=== PATIENT | female | born 1990 | race Caucasian/White ===

== ENCOUNTER 2019-05-08 09:07 | Outpatient (CLI) | payer OTHER, SELFPAY ==
[2019-05-08 09:38] VITALS: BP 127/105; PULSE 72
[2019-05-08 09:44] LABS: Basophils Absolute Auto 0.1 K/mm3 (0.0-0.1); Basophils Percent Auto 0.4 % (0.2-1.2); Eosinophils Absolute Auto 0.2 K/mm3 (0-0.3); Eosinophils Percent Auto 1.8 % (0-4.4); Hematocrit 36.2 % (37.0-47.0); Immature Granulocyte Absolute 0.08 K/mm3 (0.00-0.031); Immature Granulocyte Percent A 0.6 % (0-0.5); Lymphocytes Absolute Auto 2.34 K/mm3 (0.9-3.2); Lymphocytes Percent Auto 17.6 % (18.3-44.2); Mean Corpuscular HGB Conc 33.1 g/dl (32-36); Mean Corpuscular Hemoglobin 29.9 pg (26-34); Mean Platelet Volume 10.3 fl (7.4-10.4); Monocytes Percent Auto 7.7 % (2.6-8.5); Neutrophils Absolute Auto 9.6 K/mm3 (1.3-6.7); Neutrophils Percent Auto 71.9 % (45.5-73.1); Platelet Count Result 188 k/mm3 (150-375); Red Blood Count 4.02 M/mm3 (4.2-5.4); Red Cell Distribution Width 15.1 % (11.5-14.5); White Blood Count 13.3 K/mm3 (4.5-10.0)
[2019-05-08 09:45] VITALS: BP 129/88; PULSE 72
[2019-05-08 09:51] LABS: Creatinine Urine 18.2 mg/dL; Total Protein Urine Random 13 mg/dL
[2019-05-08 09:54] LABS: Add Urine Microscopic? YES; Appearance Urine Clear (Clear); Bilirubin Urine Negative (Negative); Blood Urine Negative (Negative); Color Urine Colorless (Yellow); Glucose Urine UA Negative (Negative); Ketones Urine Negative (Negative); Leukocyte Esterase Ur Trace LEU/UL (NEGATIVE); Nitrate Urine Negative (Negative); Protein Urine Negative (Negative); RBC Urine 0-2 /hpf (0-2); Specific Grav Ur 1.005 (1.001-1.035); Squamous Epithelial Cell Urine Rare /hpf (Few); Urobilinogen Urine Negative mg/dL (<2.0); WBC Urine 0-3 /hpf (0-3)
[2019-05-08 09:57] LABS: Alanine Aminotransferase 16 U/L (4-35); Albumin Level 3.6 g/dL (3.5-5.1); Alkaline Phosphatase 82 U/L (38-126); Aspartate Amino Transferase 19 U/L (14-36); Bilirubin,Total 0.3 mg/dL (0.2-1.3); Blood Urea Nitrogen 8 mg/dL (7-17); Calcium 9.5 mg/dL (8.4-10.2); Carbon Dioxide 22 mmol/L (22-30); Chloride 104 mmol/L (98-107); Estimated Glomerular Filt Rate > 60; Glucose 82 mg/dL (65-105); Potassium 3.8 mmol/L (3.4-5.0); Sodium 134 mmol/L (137-145); Uric Acid 5.2 mg/dL (2.5-7.5)
[2019-05-08 10:00] VITALS: BP 130/83; PULSE 70
[2019-05-08 10:15] VITALS: BP 127/81; PULSE 72
[2019-05-08 10:20] VITALS: BP 127/81; BP 129/88; PULSE 72; PULSE 75
== END 2019-05-08 10:25 | disposition home or self-care (01) ==
LOC: ANHOBOP 09:13 → ANHOBPP 09:16
PROVIDERS: Visit Provider Obstetrics & Gynecology
DX: O13.9 Gestational [pregnancy-induced] hypertension without significant proteinuria, unspecified trimester (principal)
CPT/HCPCS: 36415; 59025; 80053; 81001; 82570; 84156; 84550; 85025; 87086; 99199

== ENCOUNTER 2019-05-15 22:48 | Inpatient (IN) | payer OTHER, SELFPAY ==
[2019-05-15 23:15] VITALS: TEMP 37.1
[2019-05-15 23:16] VITALS: BP 130/100; PULSE 88
[2019-05-15 23:22] VITALS: BMI 38.2
--- NOTE | 2019-05-15 23:24 | LDADM ---
This patient, Urszula Leal, was admitted to Labor/Delivery/Recovery 104 on 05/15/19 at 22:48. Plans for labor, pain management and were discussed with patient. Patient/family oriented to hospital policies and general routines including ID bracelet, bed and alarms, visiting hours, pain management, procedures, bathroom and other care routines, personal items, smoking policy, room service/diet and guest tray routines, infant security routines, and visiting hours. Patient/Family are encouraged to report perceived risks to care and to ask questions if they do not understand what they are told or what they should do. See OBIX for further documentation.
[2019-05-15 23:31] VITALS: BP 162/99; PULSE 80
[2019-05-15 23:37] LABS: Basophils Absolute Auto 0.1 K/mm3 (0.0-0.1); Basophils Percent Auto 0.4 % (0.2-1.2); Eosinophils Absolute Auto 0.1 K/mm3 (0-0.3); Eosinophils Percent Auto 0.8 % (0-4.4); Hematocrit 35.1 % (37.0-47.0); Immature Granulocyte Percent A 1.7 % (0-0.5); Lymphocytes Absolute Auto 3.46 K/mm3 (0.9-3.2); Lymphocytes Percent Auto 29.1 % (18.3-44.2); Mean Corpuscular HGB Conc 34.2 g/dl (32-36); Mean Corpuscular Hemoglobin 30.6 pg (26-34); Mean Corpuscular Volume 89.5 fl (80-100); Mean Platelet Volume 10.2 fl (7.4-10.4); Monocytes Absolute Auto 0.8 K/mm3 (0.1-0.6); Monocytes Percent Auto 6.7 % (2.6-8.5); Neutrophils Absolute Auto 7.3 K/mm3 (1.3-6.7); Neutrophils Percent Auto 61.3 % (45.5-73.1); Platelet Count Result 255 k/mm3 (150-375); Red Blood Count 3.92 M/mm3 (4.2-5.4); Red Cell Distribution Width 14.9 % (11.5-14.5); White Blood Count 11.9 K/mm3 (4.5-10.0)
[2019-05-15 23:40] VITALS: BP 157/107; PULSE 91
[2019-05-15 23:42] VITALS: BP 156/101; PULSE 88
[2019-05-15 23:46] VITALS: BP 124/75; PULSE 104
--- NOTE | 2019-05-15 23:52 | PC.NURSE ---
Mild left side facial drooping noted. Pt has equal strength on both sides. Denies headache. States she just noticed the change this evening.
[2019-05-16] VITALS (70 sets, daily range): BP systolic 117–163; BP diastolic 69–114; PULSE 58–104; RESP 17–18; TEMP 36.6–37.1; O2SAT 98–100
[2019-05-16] MEDS: LACTATED RINGERS 1,000 ML 125 ML IV CONT ×2 (00:15→00:59)
--- NOTE | 2019-05-16 00:47 | WPDANESEPP ---
Anes - Eval Pre Procedure Procedure: Labor epidural Date/Time: 05/16/19 00:47 Surgeon: Joselito Preop Diagnosis: Labor pain Pre Op Diagnosis: contractions and leaking Patient Data Age: 28 Gender: F Height: 1.6 m Weight: 98 kg Last Vital Signs Temp 37.1 C 05/15/19 23:15 Pulse 81 05/16/19 00:46 BP 148/103 H 05/16/19 00:46 Pulse Ox 99 05/16/19 00:44 Allergies Allergy/AdvReac Type Severity Reaction Status Date / Time Penicillins Allergy Unknown Skin Verified 03/04/17 21:20 Reaction Home Medications Medication Instructions Recorded Confirmed Type PNV cmb#95-ferrous fumarate-FA 1 tablet PO DAILY 05/04/19 05/15/19 History [] Laboratory Tests 05/15/19 05/15/19 23:26 23:26 WBC 11.9 K/mm3 H K/mm3 (4.5-10.0) RBC 3.92 M/mm3 L M/mm3 (4.2-5.4) Hgb 12.0 g/dL g/dL (12.0-15.0) Hct 35.1 % L % (37.0-47.0) MCV 89.5 fl fl (80-100) MCH 30.6 pg pg (26-34) MCHC 34.2 g/dl g/dl (32-36) RDW 14.9 % H % (11.5-14.5) Plt Count 255 k/mm3 k/mm3 (150-375) MPV 10.2 fl fl (7.4-10.4) Immature Gran % (Auto) 1.7 % H % (0-0.5) Neut % (Auto) 61.3 % % (45.5-73.1) Lymph % (Auto) 29.1 % % (18.3-44.2) [place] % (Auto) 6.7 % % (2.6-8.5) Eos % (Auto) 0.8 % % (0-4.4) Baso % (Auto) 0.4 % % (0.2-1.2) Lymph # (Auto) 3.46 K/mm3 H K/mm3 (0.9-3.2) [place] # (Auto) 0.8 K/mm3 H K/mm3 (0.1-0.6) Eos # (Auto) 0.1 K/mm3 K/mm3 (0-0.3) Baso # (Auto) 0.1 K/mm3 K/mm3 (0.0-0.1) Abs Immat Gran (auto) 0.20 K/mm3 H K/mm3 (0.00-0.031) Absolute Neuts (auto) 7.3 K/mm3 H K/mm3 (1.3-6.7) Absolute Nucleated RBC 0.0 K/mm3 K/mm3 (0.0-0.012) Nucleated RBC % 0.0 % % (0.0-0.2) RPR Pending Patient hx anesthesia problems: none Family hx anesthesia problems: none [facility] Past Medical History Medical History (Updated 05/16/19 @ 00:48 by Montrell Barnett DO) PIH ( induced hypertension) Family History Family History (Updated 01/24/18 @ 10:21 by DOCTOR UNKNOWN) Grandparent Diabetes mellitus Family history of hypercholesterolemia Family history of glaucoma Hypertension Family history of cardiovascular disease Family history of malignant neoplasm of breast Family history of coronary artery disease Father Family history of hypercholesterolemia Hypertension Mother Family history of hypercholesterolemia Hypertension Social History Social History Smoking status: Never smoker Alcohol intake: never Substance use: never Gender identity (if verbalized by the patient): Female Spiritual care concerns: No Exam Day of Procedure 05/16/19 00:47
[2019-05-16] MEDS: OXYTOCIN 30 UNITS/NS 500 ML 30 UNITS/500 ML BAG IV CONT (03:55)
--- NOTE | 2019-05-16 04:09 | WPDHPUPDATE1 ---
History and Physical Update Update Date/Time: 05/16/19 04:09 28 yo at 37w who presents after SROM last night. She denies any vaginal bleeding. She reports some ctx. She endorses good FM. History and Physical has been reviewed, including an updated exam of the patient. There are NO changes in the patient's condition. Risks, benefits, and alternatives have been discussed and questions answered. Patient agrees to proceed with procedure. A/P: admit to L&D routine admission orders Rh + GBS neg FHT category 1 expectant management
--- NOTE | 2019-05-16 06:32 | PM.OBPRVD ---
OB - Delivery Note Procedure Procedure: Patient pushed for a spontaneous vaginal delivery. The fetus was delivered atraumatically and placed on the maternal abdomen. The cord was clamped and cut after 1 minute of life. The cord was double clamped and cut and a segment of cord was collected for cord gases. Cord blood was collected for blood type and Coomb's testing. The placenta delivered spontaneously and was noted to be intact. The perineum was inspected and there was a 2nd degree perineal laceration. The laceration was repaired with 3-0 vicryl in the usual fashion. The uterus was firm and good hemostasis was noted. The patient and fetus were stable in the delivery room. Intrapartal events: None Induction method: none Delivery augmentation: pitocin Delivery monitor: external FHT Route of delivery: Episiotomy description: None Laceration description: Perineal - 2nd Degree Delivery repair: vicryl Specimen: No Estimated blood loss (mL): 250 Anesthesia type: Epidural Disposition: floor () Complications: No immediate complications Baby Date of : 05/16/19 Time of : 06:19 Weeks of gestation at delivery: 37 Infant gender: Male presentation: vertex position: Right Occiput Anterior Placenta delivery description: Spontaneous score one minute: 9 score five minutes: 9
[2019-05-16] MEDS: OXYTOCIN 30 UNITS/NS 500 ML 30 UNITS/500 ML BAG 125 UNITS IV CONT (07:01)
[2019-05-16 07:23] LABS: Rapid Plasma Reagin Non-Reactive (NonReactive)
[2019-05-16] MEDS: BENZOCAINE 20% AER SPR (*SP) 56 GM CAN 1 SPRAY TOPICAL (08:45)
[2019-05-16] MEDS: WITCH HAZEL 40 PADS 1 PAD TOPICAL (08:45)
--- NOTE | 2019-05-16 09:49 | OBPPTRN ---
Patient transferred to post room #285 via W/C. Support person present. Oriented to unit, room, information board, rooming in, admission packet and security measures. Patient verbalizes understanding.
--- NOTE | 2019-05-16 10:15 | PC.NURSE ---
Consulted with patient, mother reports this is 2nd child to . eagerly latched for first feeding. Infant is sleepy mother is attempting to wake to feed. Demonstrated stimulation techniques to wake for feeding. Assisted with infant to breast. Reviewed positioning/alignment in cross cradle, holding breast in U hold and guided asymmetrical latch on. Discussed rational for each. was able to latch correctly, within a few attempts. nursed eagerly, with steady draws and frequent swallowing noted. Reviewed signs of a correct latch, effective nursing and suck swallow ratio. Infant was able to maintain latch without discomfort to mother. Suggested mother stimulate to keep infant awake and nursing effectively. . Reviewed feeding cues, frequencies, duration of feedings, feeding elimination flow sheet, signs of adequate intake and nipple care. Instructed mother to call out for RN assistance if she is unable to latch infant for feeding or she has discomfort with nursing. Instructed feeding should be initiated three hours from start of last feeding or if feeding cues are noted before. Mother voiced understanding of information shared.
--- NOTE | 2019-05-16 12:43 | PC.NURSE ---
Everything charted for 0805 should be charted for 0905
[2019-05-16] MEDS: IBUPROFEN 600 MG TABLET PO (16:49)
[2019-05-16] MEDS: POLYSACCHARIDE IRON COMPLEX 150 MG CAPSULE PO (16:50)
[2019-05-16] MEDS: DOCUSATE SODIUM 100 MG CAPSULE PO (16:50)
[2019-05-17 05:25] LABS: Hematocrit 30.1 % (37.0-47.0); Hemoglobin 9.9 g/dL (12.0-15.0)
--- NOTE | 2019-05-17 06:28 | PM.OBPNVD ---
OB - PN: Subj Subjective Date/time seen: 05/17/19 06:28 Patient comments: no complaints and pain well controlled baby status: doing well and nursing well OB - PN: Obj Data Labs CBC & Chem 7: 05/17/19 05:10 Labs: Laboratory Results - last 24 hr 05/15/19 05/17/19 23:26 05:10 Hgb 9.9 L Hct 30.1 L RPR Non-reactive OB - PN A/P Plan day: 1 Plan: routine care Time Spent With Patient Time: Total time spent is greater than 50% in coordination of care (as documented) at patient's floor/unit and/or counseling patient: Time with patient: less than 15 minutes Review of Systems Review of Systems: All systems reviewed & are unremarkable except as noted in HPI and below Exam Const: General: no acute distress Eyes: General: appearance normal, both eyes and all related structures Neck: Neck: supple and no JVD Thyroid: thyroid normal Resp: Effort & Inspection: normal respiratory effort Auscultation: clear to auscultation bilaterally Cardio: Rate: regular rate Rhythm: regular rhythm GI: Inspection: non-distended GI Palp: Yes Soft to palpation, No Tenderness to palpation present (GI) and No Guarding due to palpation present (GI) Auscultation: normal bowel sounds : General: Yes bladder normal to palpation External Female Exam: normal external appearance Speculum Exam - Vagina: normal vaginal discharge and No vaginal bleeding Speculum Exam - Cervix: nontender Bimanual exam- vagina & uterus: bladder normal to palpation and No Cervical tenderness present OB/external & speculum: No vaginal bleeding Skin: General skin exam: no rashes or lesions noted Extrem: General: normal to inspection and no edema Psych: Mental Status: mental status grossly normal Affect: normal affect
--- NOTE | 2019-05-17 07:03 | P.DS_ITS ---
DS: Diagnosis Admitting Diagnosis Admitting Diagnosis: term DS: Summary Time Spent with Patient Time attestation: Total time spent providing and/or coordinating discharge services: Exam Const: General: no acute distress Eyes: General: appearance normal, both eyes and all related structures Neck: Neck: supple and no JVD Thyroid: thyroid normal Resp: Effort & Inspection: normal respiratory effort Auscultation: clear to auscultation bilaterally Cardio: Rate: regular rate Rhythm: regular rhythm GI: Inspection: non-distended GI Palp: Yes Soft to palpation, No Tenderness to palpation present (GI) and No Guarding due to palpation present (GI) A uscultation: normal bowel sounds : General: Yes bladder normal to palpation External Female Exam: normal external appearance Speculum Exam - Vagina: normal vaginal discharge and No vaginal bleeding Speculum Exam - Cervix: nontender Bimanual exam- vagina & uterus: bladder normal to palpation and No Cervical tenderness present OB/external & speculum: No vaginal bleeding Skin: General skin exam: no rashes or lesions noted Extrem: General: normal to inspection and no edema Psych: Mental Status: mental status grossly normal Affect: normal affect DS: Data Data Completed and Pending Labs on day of discharge: Labs from last 24 hours 05/17/19 05/15/19 05:10 23:26 Hgb 9.9 L Hct 30.1 L RPR Non-reactive Discharge Plan Discharge Attending physician on discharge: Jacques Callejas Discharging Clinician: Jacques Callejas Patient Disposition: Home, Self-Care Activity: may shower, no straining, may drive after 2 weeks and pelvic rest Diet: heart healthy Wound Care Instructions: follow printed instructions Patient Instructions: Antibiotic Form Stand Alone Forms: General Discharge Information Follow-up/Referrals: Jacques Callejas MD [Physician] - Discharge Medications: Continued PNV cmb#95-ferrous fumarate-FA [] 28 mg iron- 800 mcg Tablet 1 tablet PO DAILY RF: 0 Date of admission: 05/15/19 22:48 Primary Care Provider: UNKNOWN,DOCTOR Admitting Provider: Angel Yee Attending physician on admission: Angel Yee
[2019-05-17 08:10] VITALS: BP 124/80; PULSE 88; RESP 16; TEMP 36.5; O2SAT 98
[2019-05-17] MEDS: IBUPROFEN 600 MG TABLET PO (09:04)
[2019-05-17] MEDS: POLYSACCHARIDE IRON COMPLEX 150 MG CAPSULE PO (09:04)
[2019-05-17] MEDS: MULTIVIT/MIN/PREN/FOL AC/IRON TABLET 1 TAB PO (09:04)
[2019-05-17] MEDS: DOCUSATE SODIUM 100 MG CAPSULE PO (09:04)
--- NOTE | 2019-05-17 09:13 | WPDANLDPN2 ---
Anes-Prog Note L&D Date/Time: 05/17/19 09:13 Comfortable throughout: labor and delivery Neuraxial method: epidural Epidural/Spinal procedure site: clean & non-tender Neuro status: Neuro function grossly intact. Cardiovascular status: normal Respiratory status: normal Airway patency: baseline Mental status: baseline Post-Op hydration status: normal Vital Signs: Last Vital Signs Temp 36.9 C 05/16/19 20:42 Pulse 81 05/16/19 20:42 Resp 17 05/16/19 20:42 BP 136/81 05/16/19 20:42 Pulse Ox 99 05/16/19 09:10 Pain score (VAS): 0/10. Patient resting in bed at time of assessment, appears comfortable. Support person at bedside. Post-procedural complaints: none Patient feedback: Patient satisfied with anesthetic care.
--- NOTE | 2019-05-17 09:30 | PC.NURSE ---
Mother reports slight tenderness with feedings. Observed mother putting to breast, has chin to chest and head turned. Reviewed positioning/alignment in cross cradle, holding breast in U hold and guided asymmetrical latch on. Discussed rational for each. Infant was able to latch correctly. Infant nursed eagerly, with steady draws and frequent swallowing noted. Reviewed signs of a correct latch, effective nursing and suck swallow ratio. Advised to hold breast during entire feeding for the first few days to assist with deep latch. Demonstrated how to adjust latch more deeply while feeding. Mother voiced understanding of information shared. Mother is wishing 24 hour discharge. Mother is able to independently latch with appropriate positioning/alignment. She denies any nipple discomfort, is feeding as required and waking to feed if needed. has had 9 effective feedings in the past 24 hours, and is currently meeting outcomes for weight, output, jaundice and feeding frequencies. Mother states she feels confident to continue effective at home. Reviewed transition to breast milk, signs of adequate intake, and engorgement/relief. Instructed to call ICP if intake/output less than required. Reviewed regular medications mother is taking. Information provided per Deepika. Reviewed community resources on the [facility] website and in the Mom/Baby guide. Information on outpatient services provided. Mother has no further questions at this time.
[2019-05-18 10:37] VITALS: BP 137/88; PULSE 77; RESP 20; TEMP 36.8
== END 2019-05-17 11:08 | disposition home or self-care (01) | DRG 807 ==
LOC: ANHLDR 23:31 → ANHOB2 05-17 07:04 → ANHLDR 05-18 13:28 → ANHOB2 05-18 13:28
PROVIDERS: Admitting Provider Student in an Organized Health Care Education/Training Program; Visit Provider Obstetrics & Gynecology
DX: O13.4 Gestational [pregnancy-induced] hypertension without significant proteinuria, complicating childbirth (principal); Z37.0 Single live birth; Z3A.37 37 weeks gestation of pregnancy; O70.1 Second degree perineal laceration during delivery
CPT/HCPCS: 36415; 85014; 85018; 85025; 86592; 86850; 86900; 86901; A9270; J2590; J2795; J7120

== ENCOUNTER → 2021-10-20 09:14 | Outpatient (CLI) | payer OTHER, SELFPAY ==
--- NOTE | ~2021-10-20 | US_ITS ---
EXAMINATION: US right upper quadrant DATE: 10/20/2021 09:37 INDICATION: Unspecified abdominal pain TECHNIQUE: Multiple grayscale and Doppler ultrasound images of the abdomen were obtained. COMPARISON: None available FINDINGS: The head, body, and tail of the pancreas are normal. The liver is normal with normal echoge nicity and echotexture. No surface nodularity. Normal hepatopetal flow in the main portal vein. There are multiple gallbladder polyps which measure up to 5 mm. There is no pericholecystic fluid The norm al common bile duct measures 4 mm. There was no sonographic Julian sign. IMPRESSION: 1. Multiple gallbladder polyps measuring up to 5 mm. Reviewed, dictated and finalized at location D.
== END ==
PROVIDERS: PCP Physician Assistant; Visit Provider Physician Assistant
DX: R10.9 Unspecified abdominal pain (principal); K82.4 Cholesterolosis of gallbladder
CPT/HCPCS: 76705

== ENCOUNTER 2024-12-10 17:52 | Emergency (ER) | payer OTHER, SELFPAY ==
--- OUTSIDE RECORDS SUMMARY | 2024-12-10 17:53 | XMS_ITS | Clinical Summary ---
Author Organization [facility] Healthcare Address [address] [place] [address] Care Team Providers Care Fundraising Officer Name Role Phone Randall Young MD Primary Care Provider [phone] Randall Young MD Unavailable [phone] Randall Young MD Unavailable [phone] Allergies Active Allergy Reactions Criticality Noted Date Comments Penicillins Hives Medium 03/22/2017 Medications PNV 39-iron bbj-hjjca-ebf-dh a 30 mg iron-1.2 mg-55 mg-265 mg capsule Take 1 tablet by mouth daily. Active Active Problems Problem Noted Date Diagnosed Date Vaginal delivery 37 weeks gestation of Immunizations Immunization Administration Dates Next Due Influenza, Unspecified 12/08/2017 Tdap 03/01/2018 Surgical History Surgery Date Site/Laterality Comments VAGINAL DELIVERY 04/14/2018 Social History Tobacco Use Types Packs/Day Years Used Date Smoking Tobacco: Never Smokeless Tobacco: Never Personal Safety Answer Date Recorded Getting School Help Needed Not on file 05/14 Comments No Sex and Gender Information Value Date Recorded Sex Assigned at Not on file Legal Sex Female 10:52 AM CDT Gender Identity Not on file Sexual Orientation Not on file Obstetrics History Para Term AB IAB SAB Ectopic Multiple Livin g Live Births 3 1 1 2 1 1 0 1 1 Date Outcome GA Total Labor Labor/2nd/3rd Weight Sex Type Anes PTL Jaqueline A1 A5 Name Clin SAB IAB 2018 Term 37w 2d 9h 28m 7h 09m/2h 15m/0h 04m 3.043 kg (6 lb 11.3 oz) F Vag-S pont Epidur al N Livin g 7 9 Arlyn LEAL , Joy mahan MD Complications:None Delivery Location:This Fac[facility] ([facility]) Last Filed Vital Signs Vital Sign Reading Time Taken Comments Blood Pressure 126/88 05/29/2018 9:06 AM CDT Pulse 82 04/15/2018 6:20 AM GENERAL PARTNER Temperature 36.7 C (98.1 F) 04/15/2018 6:20 AM GENERAL PARTNER Respiratory Rate 18 04/15/2018 6:20 AM GENERAL PARTNER Oxygen Saturation 99% 04/14/2018 9:0 0 AM GENERAL PARTNER Simultaneous filing. User may not have seen previous data. Inhaled Oxygen Concentration - - Weight 86.2 kg (190 lb) 05/29/2018 9:06 AM CDT Height 157.5 cm (5' 2) 05/29/2018 9:06 AM CDT Body Mass Index 34.75 05/29/2018 9:06 AM CDT Plan of Treatment Not on file Insurance [facility] HMO/PPO Address: [facility] [address] [place] [address] Advance Directives For more information, please contact: [phone] * Full Code (Latest Code Status on File) Date Activated Date Inactivated Comments 04/14/2018 10:56 AM 04/15/2018 5:24 PM * Full Code Date Activated Date Inactivated Comments 04/13/2018 9:26 PM 04/14/2018 10:56 AM Full CPR in case of cardiopulmonary arrest Care Teams Fundraising Officer Relationship Specialty Start Date End Date Randall Young MD [address] [place] [address] [facility] - General 03/16/17 Randall Young MD [address] [place] [address] 12/03/16 Randall Young MD [address] [place] [address] 03/16/17
--- OUTSIDE RECORDS SUMMARY | 2024-12-10 17:53 | XMS_ITS | Clinical Summary ---
Author Organization [facility] Address [address] [place] [address] Care Team Providers Care Ticket Taker Ferryboat Name Role Phone Randall Young MD Primary Care Provider [phone] Source Comments [facility],non-owned Affiliates and Associated Physician Practices is amultiple site organization consisting of ambulatory clinics and hospital sitesin [place], [place], [place] and [place]. This disclosure is being madepursuant to the Care Everywhere program and may not contain all information available regarding this patient. 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 Gender Identity Not on file Sexual Orientation Not on file Plan of Treatment Health Maintenance Due Date Last Done Comments HIV SCREENING 2005 HEPATITIS C SCREENING 06/21/2008 DTAP/TDAP/TD VACCINES (1 - Tdap) 2009 HEPATITIS B VACCINE (1 of 3 - 19+ 3-dose series) 2009 HPV VACCINE (1 - 3-dose SCDM series) 2017 DEPRESSION SCREENING 02/29/2024 COVID-19 VACCINE (1 - 2023-2 5 season) 2024 INFLUENZA VACCINE (#1) 2024 12/08/2017 ZOSTER VACCINE (1 of 2) 2040 HIB VACCINE Aged Out No longer eligi ble based on patient's age to complete this topic MENINGOCOCCAL (Group B) VACC INE SHARED DECISION-MAKING Aged Out No longer eligibl e based on patient's age to complete this topic MENINGOCOCCAL GROUPS A/C/Y/W VACCINE Aged Out No longer eligible b ased on patient's age to complete this topic PNEUMOCOCCAL VACCINE Aged Out No long er eligible based on patient's age to complete this topic Insurance [facility] [place] [id number] Care Teams Ticket Taker Ferryboat Relationship Specialty Start Date End Date Randall Young MD [address] [place] [address] PCP - General Family Medicine 03/22/17
--- OUTSIDE RECORDS SUMMARY | 2024-12-10 17:53 | XMS_ITS | Clinical Summary ---
Author Organization [facility] Address [facility] [place] [address] Care Team Providers Care Chiropractor Assistant Name Role Phone Dolly Partida Primary Care Provider [phone] Allergies Active Allergy Reactions Criticality Noted Date Comments Penicillins Hives Medium 03/22/2017 Medications HYDROcodone-acet aminophen (NORCO) 5-325 MG tabletIndication s:Acute Pain < 7 Day Supply Take 1 tablet by mouth every 6 (six) hours as needed for Pain. Indications : Acute Pain < 7 Day Supply 20 tablet 12/30/2021 Active Immunizations Immunization Administration Dates Next Due MODERNA COVID-19 (12+) MRNA, LNP-S, PF, 100 MCG/ 0.5 ML DOSE 04/10/2020,03/13/2020 Family History Medical History Relation Comments Cancer Father appendix Hypertension Mother Relation Status Comments Father Alive Mother Alive Social History Tobacco Use Types Packs/Day Years Used Date Smoking Tobacco: Never Smokeless Tobacco: Never Alcohol Use Standard Drinks/Week Comments Yes 1 (1 standard drink = 0.6 oz pur e alcohol) Comments No Sex and Gender Information Value Date Recorded Sex Assigned at Not on file 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 Gender Identity Not on file Sexual Orientation Not on file Last Filed Vital Signs Vital Sign Reading Time Taken Comments Blood Pressure 127/83 12/30/2021 10:25 AM CDT Pulse 64 12/30/2021 10:25 AM CDT Temperature 36.9 C (98.4 F) 12/30/2021 10:25 AM CDT Respiratory Rate 16 12/30/2021 10:25 AM CDT Oxygen Saturation 100% 12/30/2021 10:25 AM CDT Inhaled Oxygen Concentration - - Weight 80.3 kg (177 lb 0.5 oz) 12/30/2021 6:30 A M CDT Height 160 cm (5' 3) 12/22/2021 11:17 AM CDT Body Mass Index 31.36 12/22/2021 11:17 AM CDT Plan of Treatment Health Maintenance Due Date Last Done Comments Cervical Cancer Screening Pa p Smear (Age 30 to 64) Every 3 Years 1990 Annual Physical 1993 Hepatitis C 2008 Hepatitis B Vaccines (1 of 3 - 19+ 3-dose series) 2009 HPV Vaccines (1 - 3-dose SCD M series) 2017 Cervical Cancer Screening Pa p with HPV Testing (Age 30 to 64) Every 5 Years 2020 Cervical Cancer Screening wi th HPV 2020 COVID-19 Vaccine (3 - 2024-2 6 season) 2024 04/10/2020, 03/13/2020 Influenza Adult (#1) 2024 12/08/2017 DTaP, Tdap and Td Vaccines ( 3 - Td or Tdap) 04/11/2029 04/11/2019, 03/01/2018 Meningococcal B Vaccine Aged Out No l onger eligible based on patient's age to complete this topic Meningococcal Vaccine Aged Out No seda esteban eligible based on patient's age to complete this topic Pneumococcal Vaccine: Pediatrics (0 to 5 Years) and At-Risk Patients (6 to 49 Years) Aged Out No longer eligible b ased on patient's age to complete this topic RSV Immunizations Under 20 Months Aged Out No longer eligible b ased on patient's age to complete this topic Insurance [employer] Care Teams Chiropractor Assistant Relationship Specialty Start Date End Date Dolly Partida PA [address] [place] [address] PCP - General PHYSICIAN DISTILLERY WORKER 12/22/21
--- NOTE | 2024-12-10 17:55 | ED.EAR ---
HPI - Ear Problem General Chief complaint: Ear Stated complaint: L Ear Time Seen by Provider: 12/10/24 17:55 Source: patient Mode of arrival: ambulatory Limitations: no limitations History of Present Illness HPI Narrative: Urszula is a 34-year-old female patient presenting to the clinic today with complaints of left ear pain off and on for 1 month. She reports she is having pain to both ears but the left ear is worse. Did have some sinus pressure and congestion before. States that the congestion and sinus pressure has improved. Denies any fevers, chills, body aches. Does have some ringing in the ears at times. No drainage coming from the ears. Related Data Allergies Allergy/AdvReac Type Severity Reaction Status Date / Time Penicillins Allergy Unknown Skin Verified 12/10/24 18:08 Reaction Review of Systems Review of Systems: Pertinent positives per HPI. Patient denies any fever, chills, rash, headache, visual changes, dizziness, cough, runny nose, sore throat, shortness of breath, chest pain, palpitations, nausea, vomiting, diarrhea, constipation, abdominal pain, or any urinary issues. PMFSH Past Medical History Medical History PIH ( induced hypertension) Surgical History Surgical History [place] teeth removed Hx of cholecystectomy Family History Family History Grandparent Diabetes mellitus Family history of hypercholesterolemia Family history of glaucoma Hypertension Family history of cardiovascular disease Family history of malignant neoplasm of breast Family history of coronary artery disease Father Family history of hypercholesterolemia Hypertension Appendix carcinoma Mother Family history of hypercholesterolemia Hypertension Social History Social History Smoking status: Never smoker Alcohol intake: never Substance use: never Gender identity (if verbalized by the patient): Female Spiritual care concerns: No Comments At the time of my signature, I reviewed and agree with the nursing past medical, surgical, social, and family history. There is no relevant family history pertinent to the patient complaint. Exam Narrative: General: Well-developed, well nourished, in no apparent distress Head: Normocephalic, atraumatic Eyes: Pupils equally round and reactive to light bilaterally, EOM intact, sclera and conjunctive clear, no discharge, lids normal Ears: TMs intact, clear, mild bulging, tenderness to palpation over the left eustachian tube in the left ear canals clear, no drainage, grossly hearing normal. Nose: Nares patent, no discharge, no inflammation, no sinus tenderness. Mouth: Oropharynx without lesions or masses, good dentition, MMM. Neck: Supple, trachea midline, no enlargement of anterior or posterior cervical nodes, no thyroid masses or goiter palpable. Cardio: Regular rate and rhythm, s1 and s2 normal, no murmur appreciated. Resp: Clear to auscultation bilaterally anteriorly and posteriorly, no rhonchi, rales, wheezing or rubs Course Course Emergency Course: Portions of this record may have been created with voice recognition software. Level of Care: Express Care Visit Vital Signs Vital signs: Vital Signs Temperature 36.7 C 12/10/24 18:05 Pulse Rate 83 12/10/24 18:05 Respiratory Rate 16 12/10/24 18:05 Blood Pressure 136/94 H 12/10/24 18:05 Pulse Oximetry 100 12/10/24 18:05 Temperature 36.7 C 12/10/24 18:05 Pulse Rate 83 12/10/24 18:05 Respiratory Rate 16 12/10/24 18:05 Blood Pressure 136/94 H 12/10/24 18:05 Pulse Oximetry 100 12/10/24 18:05 Vital signs reviewed Medical Decision Making MDM Narrative Medical decision making narrative: At the time of visit patient is resting comfortably on the exam table. Patient appears to be nontoxic. Complaints of left ear pain off and on for 1 month. She reports she is having pain to both ears but the left ear is worse. Did have some sinus pressure and congestion before. States that the congestion and sinus pressure has improved. Denies any fevers, chills, body aches. Does have some ringing in the ears at times. No drainage coming from the ears. On exam patient has intact TMs with mild bulging left greater than right. Plan: I suspect patient has otalgia/left eustachian tube dysfunction. Five day course of steroids was ordered. Encouraged use Flonase and [id number] antihistamines. Supportive measures were discussed with the patient and they voiced understanding discharge instructions and agrees to treatment plan. Return precautions reviewed Differential Diagnosis Differential Diagnosis: Otitis media, otitis externa, eustachian tube dysfunction, cerumen impaction, upper respiratory infection, serous otitis Vital Signs Vital Signs: Vital Signs Temperature 36.7 C 12/10/24 18:05 Pulse Rate 83 12/10/24 18:05 Respiratory Rate 16 12/10/24 18:05 Blood Pressure 136/94 H 12/10/24 18:05 Pulse Oximetry 100 12/10/24 18:05 Temperature 36.7 C 12/10/24 18:05 Pulse Rate 83 12/10/24 18:05 Respiratory Rate 16 12/10/24 18:05 Blood Pressure 136/94 H 12/10/24 18:05 Pulse Oximetry 100 12/10/24 18:05 Discharge Plan Discharge Clinical Impression: Otogenic otalgia of both ears, Acute dysfunction of left eustachian tube Patient Disposition: Home Condition: Stable Instructions: Antibiotic Form, Earache (ED) Additional Instructions: Take any prescribed medications only as directed-prednisone Tylenol/motrin as needed for pain May use heating pad to alleviate pain If you get recurrent ear infections it may be warranted to follow up with ENT. Follow up with your PCP in 3-5 days if symptoms persist. Patient Language: Tristanian Prescriptions: New prednisone 20 mg tablet 40 mg PO DAILY 5 Days Qty: 10 0RF No Action drospirenone-ethinyl estradiol [Tomasa (28)] 3-0.03 mg tablet 1 tablet PO DAILY Qty: 84 3RF Follow-up/Referrals: Angel Yee MD [Primary Care Provider, FLOOR [employer]FACER] Time of Disposition: 18:09 Quality NIHSS Nursing Documentation ED NIHSS nursing documentation: reviewed/agree
[2024-12-10 18:05] VITALS: BP 136/94; PULSE 83; RESP 16; TEMP 36.7; O2SAT 100
== END 2024-12-10 18:15 | disposition home or self-care (01) ==
LOC: EXPTROY 17:59
PROVIDERS: Emergency Provider Nurse Practitioner Family; PCP Obstetrics & Gynecology
DX: H92.03 Otalgia, bilateral (principal); H69.92 Unspecified Eustachian tube disorder, left ear
CPT/HCPCS: 99213; G0463